=== PATIENT | female | born 1955 | race Caucasian/White ===

== ENCOUNTER 2018-11-22 09:53 | Inpatient (IN) ==
--- NOTE | 2018-11-22 10:03 | PROVIDER DOCUMENTATION ---
HPI-Musculoskeletal Pain/Inj - GENERAL Chief Complaint: Hip Injury Stated Complaint: FALL / LEFT HIP PAIN Time Seen by Provider: 11/22/18 09:56 Source: patient - HX OF PRESENT ILLNESS-MUSKULOSKELTAL Nature of Presenting Problem: 63yof presents to ED s/p slip and fall from standing to left hip, with impact to lateral surface. She denies head impact/back pain/paresthesias. She has not ambulated since fall and arrived via EMS. 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 Quality of Pain: reports: aching Severity in ED: moderate Onset/Duration: abrupt, just prior to arrival Timing: still present Modifying Factors: improves with: movement Any recent injury?: Yes Locality of Occurance: Home Similar Symptoms Previously?: No Recently seen or treated by another doctor?: No Review of Systems - Adult - REVIEW OF SYSTEMS - ADULT Constitutional: reports: no symptoms reported Eyes: reports: no symptoms reported Ears, Nose, Mouth & Throat: reports: no symptoms reported Cardiovascular: reports: no symptoms reported Respiratory: reports: no symptoms reported Gastrointestinal: reports: no symptoms reported Genitourinary: reports: no symptoms reported Musculoskeletal: reports: see HPI, joint pain (left hip) Integumentary: reports: no symptoms reported Neurological: reports: no symptoms reported Psychiatric: reports: no symptoms reported Endocrine: reports: no symptoms reported Hematologic/Lymphatic: reports: no symptoms reported Allergic/Immunologic: reports: no symptoms reported All Other Systems: Reviewed and Negative Past History - Adult - PAST MEDICAL HISTORY-ADULT Review of Records: reports: Old Records Reviewed, Nursing Assessment Review, Medications Reviewed, Social history reviewed & non-contributory. - SOCIAL HISTORY Smoking: non-smoker Living Situation: family Physical Exam-Injury Related - Physical Exam-Injury Related Initial Vital Signs Reviewed: Yes General Appearance: appears well, alert, no apparent distress Eyes: PERRL/EOMI, pink conjunctivae Head, Ears, Nose, Mouth & Throat: normocephalic/atraumatic, moist mucous membranes, normal ENT inspection, TMs normal, pharynx normal Neck: non-tender, full range of motion, supple, normal inspection Respiratory: chest non-tender, lungs clear, normal breath sounds Cardiovascular: normal peripheral pulses, regular rate, rhythm Abdominal Exam: normal bowel sounds, non tender, soft, no organomegaly Lymphatic: no adenopathy Back Exam: normal inspection, no CVA tenderness, no vertebral tenderness Extremity: normal inspection, tenderness (moderate left lateral hip tenderness with palpation; Dec AROM due to pain with movement) Integumentary: normal color, warm/dry Neurologic: compliance spec II-XII nml as tested, grossly normal, no motor/sensory deficits Psych/Mental Status: normal mood/affect, normal thought content, normal thought process, oriented x 3 Progress - PLAN OF CARE/RESULTS Progress/Plan/Lab Results: Vital Signs - 8 hr 11/22/18 09:55 Temperature 98.5 F Pulse Rate 96 H Respiratory Rate 19 Blood Pressure 130/94 O2 Sat by Pulse Oximetry 97 Laboratory Results - last 24 hr 11/22/18 11/22/18 11/22/18 11:04 11:15 11:15 WBC 9.56 RBC 4.76 Hgb 13.2 Hct 40.1 MCV 84.2 MCH 27.7 MCHC 32.9 L RDW Std Deviation 15.3 H Plt Count 291 MPV 8.9 Immature Gran % (Auto) 0.4 Neut % (Auto) 80.2 H Lymph % (Auto) 10.3 L [place] % (Auto) 7.2 Eos % (Auto) 1.6 Baso % (Auto) 0.3 Immature Gran # (Auto) 0.04 Neut # (Auto) 7.67 H Lymph # (Auto) 0.98 L [place] # (Auto) 0.69 H Eos # (Auto) 0.15 Baso # (Auto) 0.03 PT INR PTT (Actin FS) Sodium 142 Potassium 4.0 Chloride 108 H Carbon Dioxide 23 L Anion Gap 11 BUN 12 Creatinine 0.8 Estimated GFR/1.73 m2 > 60 BUN/Creatinine Ratio 15 Glucose 104 Calculated Osmolality 283 Calcium 8.9 Total Bilirubin 0.25 AST 22 ALT 17 Alkaline Phosphatase 71 Total Protein 7.1 Albumin 3.8 Globulin 3.3 Albumin/Globulin Ratio 1.2 Urine Source CATH Urine Color YELLOW Urine Turbidity CLEAR Urine pH 7.0 Ur Specific [place] 1.010 Urine Protein NEGATIVE Ur Glucose (Stick) NEGATIVE Ur Ketones (Stick) NEGATIVE Urine Blood NEGATIVE Urine Nitrite NEGATIVE Urine Bilirubin NEGATIVE Urobilinogen Dipstick NORMAL Urine Leukocytes NEGATIVE Urine WBC (Auto) <10 Urine RBC (Auto) <10 U Epithel Cells (Auto) <10 Urine Bacteria (Auto) NEGATIVE 11/22/18 11:15 WBC RBC Hgb Hct MCV MCH MCHC RDW Std Deviation Plt Count MPV Immature Gran % (Auto) Neut % (Auto) Lymph % (Auto) [place] % (Auto) Eos % (Auto) Baso % (Auto) Immature Gran # (Auto) Neut # (Auto) Lymph # (Auto) [place] # (Auto) Eos # (Auto) Baso # (Auto) PT 12.7 INR 0.95 PTT (Actin FS) 26.2 Sodium Potassium Chloride Carbon Dioxide Anion Gap BUN Creatinine Estimated GFR/1.73 m2 BUN/Creatinine Ratio Glucose Calculated Osmolality Calcium Total Bilirubin AST ALT Alkaline Phosphatase Total Protein Albumin Globulin Albumin/Globulin Ratio Urine Source Urine Color Urine Turbidity Urine pH Ur Specific [place] Urine Protein Ur Glucose (Stick) Ur Ketones (Stick) Urine Blood Urine Nitrite Urine Bilirubin Urobilinogen Dipstick Urine Leukocytes Urine WBC (Auto) Urine RBC (Auto) U Epithel Cells (Auto) Urine Bacteria (Auto) Orders Category Date Time Status [place] Insertion ORDERED Care 11/22/18 10:32 Active Nursing- Obtain EKG ONCE Care 11/22/18 10:32 Active Saline Loc NOW Care 11/22/18 10:32 Active NPO Diet 11/22/18 11:48 Active CHEST-1 VIEW [RAD] Stat Exams 11/22/18 10:18 Completed KNEE 3 VIEWS LEFT [RAD] Stat Exams 11/22/18 10:09 Completed XRAY HIP UNILATERAL LT [RAD] Stat Exams 11/22/18 10:00 Completed CBC WITH DIFF [HEME] Stat Lab 11/22/18 11:15 Completed COMPREHENSIVE METABOLIC PANEL [CHEM] Stat Lab 11/22/18 11:15 Completed PROTIME WITH INR [COAG] Stat Lab 11/22/18 11:15 Completed PTT [COAG] Stat Lab 11/22/18 11:15 Completed URINALYSIS W/POSS RFLX CULT [URINALYSIS] Stat Lab 11/22/18 11:04 Completed Morphine Med 11/22/18 10:32 Discontinued 4 mg IV NOW ONE Morphine Med 11/22/18 11:16 Discontinued 4 mg IV NOW ONE Ondansetron [Zofran] Med 11/22/18 10:32 Discontinued 4 mg IV NOW ONE EKG [EKG] Stat Ther 11/22/18 10:32 Draft Result Diagrams: 11/22/18 11:15 11/22/18 11:15 - REASSESSMENT Reassessment #1 Time Reassessed: 10:37 (Reviewed xrays, discussed results with pt and Dr. Ornelas. Paging Orthopedist electrical subcontractor for admit.) Reassessment #2 Time Reassessed: 11:49 (Discussed pt with Dr. Grimm's PA, who recommends admit to Hospitalist.) Reassessment #3 Time Reassessed: 11:52 (Discussed pt with Hospitalist service KSENIA Magallanes, who accepted admit to Dr. Dc and is aware Dr. Grimm has been consulted.) Reassessment #4 Time Reassessed: 11:57 (Spoke with Dr. Grimm, he agrees with admit.) Departure - Departure Date of Disposition Decision: 11/22/18 Time of Disposition Decision: 10:33 DIAGNOSIS: Hip fracture, left Qualifiers: Encounter type: initial encounter Fracture type: closed Qualified Code(s): S72.002A - Fracture of unspecified part of neck of left femur, initial encounter for closed fracture Disposition: ADMITTED INPATIENT 09 Certified Medical Emergency: Emergent Condition: Stable Referrals and Follow-Ups: None,PCP [Primary Care Provider] - - Critical Care Note This patient required my direct & personal management of CC.: No Attestation - Physician/ BUDDY Attestation Patient care was provided by Advanced Practice Provider:: Yes Advanced Practice Provider:: Aspen Tapia Advanced Practice Provider documentation review:: The Mid-level provider documentation, treatment plan and medical decision making was reviewed by the physician who agrees with all treatment and medical decision making by the [facility]. The physician spent face to face time with patient:: No Advanced Practice Provider documentation review:: Supervising physician onsite and consulted in the evaluation and care of this patient. The physician did not have a face to face encounter with the patient.
[2018-11-22] MEDS ORDERED: MORPHINE IV ONE ×2 (10:32→11:16)
[2018-11-22] MEDS ORDERED: ZOFRAN IV ONE (10:32)
--- NOTE | 2018-11-22 10:32 | Diag Imaging Result Doc PS360 ---
EXAM: CHEST-1 VIEW HISTORY: hip fracture TECHNIQUE: Chest single view COMPARISON: None. FINDINGS: The lungs are well expanded. The heart is not enlarged. The vessels are not distended. There are no infiltrates. No effusion identified. IMPRESSION: Negative exam. Electronically signed by Param Ramirez 11/22/2018 10:30 AM
--- NOTE | 2018-11-22 10:36 | Diag Imaging Result Doc PS360 ---
EXAM: XRAY HIP UNILATERAL LT HISTORY: left hip pain s/p fall TECHNIQUE: Left hip two views COMPARISON: None. FINDINGS: There is a fracture to the upper left femur. This appears to extend across the lesser trochanter to the proximal shaft. The femoral head remains in the acetabulum. IMPRESSION: Proximal femoral fracture Electronically signed by Param Ramirez 11/22/2018 10:34 AM
--- NOTE | 2018-11-22 10:53 | Diag Imaging Result Doc PS360 ---
EXAM: KNEE 3 VIEWS LEFT HISTORY: left knee pain TECHNIQUE: Left knee, three views COMPARISON: None. FINDINGS: No fracture. No dislocation. No joint space narrowing. IMPRESSION: Negative exam Electronically signed by Param Ramirez 11/22/2018 10:51 AM
[2018-11-22 11:15] LABS: URINE SOURCE CATH
[2018-11-22 11:16] LABS: COLOR YELLOW; TURBIDITY URINE CLEAR (CLEAR)
[2018-11-22 11:17] LABS: BILIRUBIN URINE NEGATIVE (NEGATIVE); BLOOD URINE NEGATIVE (NEGATIVE); GLUCOSE URINE NEGATIVE (NEGATIVE); KETONE URINE NEGATIVE (NEGATIVE); LEUKOCYTES URINE NEGATIVE (NEGATIVE); NITRITE URINE NEGATIVE (NEGATIVE); PROTEIN URINE NEGATIVE (NEGATIVE); UROBILINOGEN URINE NORMAL (NORMAL)
[2018-11-22 11:18] LABS: UR EPITHELIAL CELLS <10 /HPF (<10); URINE BACTERIA NEGATIVE /HPF; URINE RBC <10 /HPF (<10); URINE WBC <10 /HPF (<10)
[2018-11-22 11:25] LABS: BASO# 0.03 X1000 (0.0-0.2); BASO% 0.3 % (0.0-0.8); EOS# 0.15 X1000 (0.0-0.7); EOS% 1.6 % (0.0-10.0); HEMATOCRIT 40.1 % (37.0-47.0); HEMOGLOBIN 13.2 g/dL (12.0-16.0); IMM GRAN# 0.04 X1000 (0.0-0.04); IMM GRAN% 0.4 % (0.0-0.5); LYMPH# 0.98 X1000 (1.2-3.4); LYMPH% 10.3 % (20.5-51.1); MCH 27.7 PG (27-31); MCHC 32.9 g/dL (33-37); MCV 84.2 FL (81-99); MONO# 0.69 X1000 (0.11-0.59); MONO% 7.2 % (1.7-9.3); MPV 8.9 FL (7.4-10.4); NEUT# 7.67 X1000 (1.4-6.5); NEUT% 80.2 % (42.2-75.2); PLT 291 X1000 (130-400); RBC 4.76 XMIL (4.2-5.4); RDW 15.3 % (11.5-14.5); WBC 9.56 X1000 (4.8-10.8)
--- NOTE | 2018-11-22 11:31 | EKG Report ---
Test Performed on : 11/22/2018 10:54:06 AM Test Reason : hip fracture, preop Blood Pressure : / mmHG Vent. Rate : 084 BPM Atrial Rate : 084 BPM P-R Int : 176 ms QRS Dur : 076 ms QT Int : 382 ms P-R-T Axes : 058 020 049 degrees QTc Int : 451 ms Normal sinus rhythm. Normal ECG No previous ECGs available Unconfirmed Result
[2018-11-22 11:33] LABS: INR 0.95; PROTIME 12.7 Seconds (11.0-16.0)
[2018-11-22 11:34] LABS: PTT 26.2 Seconds (22.3-41.8)
--- NOTE | 2018-11-22 11:40 | ED EKG INTERP ---
This chart was entered by Emilia Gipson Scribe, acting as scribe for Neil Ornelas MD. EKG Interpretation - EKG Time of EKG reading by physician:: 10:54 EKG Read and Signed by:: Neil Ornelas EKG Interpretation (*Must complete 3 of following elements*): Normal Rate: 84 Rhythm: normal sinus rhythm [place]: normal QRS: normal [place] Interval: normal ST Wave: normal Comments: normal ECG Attestation - Physician/ BUDDY Attestation Patient care was provided by Advanced Practice Provider:: Yes Advanced Practice Provider:: Aspen Tapia Advanced Practice Provider documentation review:: The Mid-level provider documentation, treatment plan and medical decision making was reviewed by the physician who agrees with all treatment and medical decision making by the MLP. The physician spent face to face time with patient:: No Advanced Practice Provider documentation review:: Supervising physician onsite and consulted in the evaluation and care of this patient. The physician did not have a face to face encounter with the patient. This chart was documented by the indicated scribe, (Emilia Gipson Scribe) and accu rately reflects the services I performed and decisions made by Johnson carl Alex T., MD, as attested by the provider's signature.
[2018-11-22 11:51] LABS: AGAP 11; ALB/GLOB RATIO 1.2; ALBUMIN 3.8 g/dL (3.5-5.0); ALKALINE PHOSPHATASE 71 U/L (32-104); BUN 12 mg/dL (8-22); CALCIUM 8.9 mg/dL (8.8-10.2); CHLORIDE 108 mmol/L (98-107); COSMO 283; CREATININE 0.8 mg/dL (0.5-0.9); ESTIMATED GFR > 60; GLUCOSE 104 mg/dL (70-104); GOT 22 U/L (10-30); GPT 17 U/L (10-36); SODIUM 142 mmol/L (136-145); TCO2 23 mmol/L (25-35); TOTAL BILIRUBIN 0.25 mg/dL (0.20-1.00); TOTAL PROTEIN 7.1 g/dL (6.3-8.3)
[2018-11-22] MEDS ORDERED: DILAUDID IV ONE (12:20)
[2018-11-22] MEDS ORDERED: NS 1,000 ML IV SCH (13:40)
[2018-11-22] MEDS ORDERED: MORPHINE IV PRN (13:40)
[2018-11-22] MEDS ORDERED: ZOFRAN IV PRN ×2 (13:40→16:45)
[2018-11-22] MEDS ORDERED: KEFZOL 1 GM/D5W 1 GM/50 ML IVPB IV ONE (13:40)
[2018-11-22] MEDS ORDERED: TYLENOL PO PRN (13:40)
[2018-11-22] MEDS ORDERED: DIPRIVAN 1% ONE (14:04)
[2018-11-22] MEDS ORDERED: XYLOCAINE-MPF 2% ONE (14:04)
--- NOTE | 2018-11-22 14:12 | EKG Report ---
Test Performed on : 11/22/2018 1:55:28 PM Test Reason : preop Blood Pressure : / mmHG Vent. Rate : 088 BPM Atrial Rate : 088 BPM P-R Int : 182 ms QRS Dur : 076 ms QT Int : 374 ms P-R-T Axes : 066 043 050 degrees QTc Int : 452 ms Normal sinus rhythm. Normal ECG When compared with ECG of 22-NOV-2018 10:54, (Unconfirmed) No significant change was found Confirmed by Adriane GRAY, Robb Perez ([id number]) on 11/22/2018 10:36:43 PM
[2018-11-22] MEDS ORDERED: KEFZOL 2 GM/D5W 2 GM/50 ML IVPB ONE (14:17)
--- NOTE | 2018-11-22 14:24 | ORTHOPAEDICS CONSULTATION ---
DATE: 11/22/2018 HISTORY: Ms. London is a 63-year-old female with a past medical history of chronic lower back pain for which she is on Neurontin. She was in her home when she had a slip and fell from a standing height. She had an impact to the left side. She had immediate pain in the left hip. She was unable to ambulate or weight bear on this left side after the fall. She denies loss of consciousness, dizziness, lightheadedness, or syncope. She denies any injury to the head. She denies injury to any other extremity. She was taken by ambulance to [facility] Emergency Room. A hip film taken in the emergency room showed a left intertrochanteric fracture. Orthopedics has been consulted for management of the fracture. PAST MEDICAL HISTORY: Chronic low back pain. PAST SURGICAL HISTORY: Not known. CURRENT MEDICATIONS: Neurontin. ALLERGIES: No known drug allergies. FAMILY HISTORY: Noncontributory. SOCIAL HISTORY: The patient is a past smoker but denies smoking in the last 3 years. She rarely uses alcohol. She denies illicit drug use. She lives with her son. REVIEW OF SYSTEMS: A 10 point review of systems was completed and negative except for what was mentioned above in the HPI. PHYSICAL EXAMINATION: Vital Signs: Temperature is 98.6 degrees, pulse 78, respirations 14, blood pressure 130/94, she is 95% on room air. General: This is a 63-year-old, obese female in no acute distress. Neurological: She is alert and oriented x3 with no focal deficits. HEENT: Head is atraumatic, normocephalic. Pupils equal, round, reactive to light. Cardiovascular: Regular rate and rhythm. Breathing is even and nonlabored with equal chest expansion. Abdomen: Obese but appears nondistended. Extremities: The left lower extremity is short and externally rotated. She does have decreased sensation to the foot. She has tenderness to palpation over the hip and pain with range of motion. She is able to dorsi and plantar flex the ankle. She does have a lot of discoloration from the knee down that is bilateral. She has a little bit of edema bilaterally as well. LABORATORY: White count is 9.56, hemoglobin and hematocrit 13.2 and 40.1, platelet count is 291,000. INR is 0.95. BUN and creatinine are 12 and 0.8. IMAGING: A two-view of the left hip reviewed and interpreted by Dr. Segovia shows a left intertrochanteric fracture. ASSESSMENT: Left intertrochanteric fracture. PLAN: Dr. Segovia has discussed with the patient and the family about surgical fixation. We will plan for a trochanteric femoral nailing today. She denies being on any blood thinners. She does not have a lot of past medical history but I do not think she goes to the doctor very much. She does have a lot of discoloration of the lower extremities. It does look like she has some peripheral vascular disease for sure but otherwise, there are no obvious contraindications to pursuing surgery today. She is in a pretty good amount of pain. Her son is at the bedside. Dr. Segovia discussed risks and benefits with the patient. Risks include, but are not limited to, damage to nerves, arteries, and veins, malunion, nonunion, hardware related issues, DVT, infection, poor wound healing, risk of continued pain, and risk of general anesthesia. The patient and family understand and wished to proceed. We are going to do this today. We will plan for her to be full weightbearing as tolerated on that left lower extremity postoperatively. We will plan for a 21 day rehab stay. Dictated by KSENIA Jose for Jeff Segovia MD cc: KSENIA Jose MD
[2018-11-22] MEDS ORDERED: MORPHINE ONE (14:35)
[2018-11-22] MEDS ORDERED: DECADRON ONE (14:56)
[2018-11-22] MEDS ORDERED: ZOFRAN ONE (14:56)
[2018-11-22] MEDS ORDERED: ROBINUL ONE (15:39)
[2018-11-22] MEDS ORDERED: PHENERGAN ONE (16:06)
[2018-11-22] MEDS: DILAUDID ONE ×4 (16:08→16:30)
[2018-11-22] MEDS ORDERED: HALDOL IV PRN (16:45)
[2018-11-22] MEDS ORDERED: MILK OF MAGNESIA PO PRN (16:45)
[2018-11-22] MEDS ORDERED: NS 1,000 ML ONE (17:00)
[2018-11-22] MEDS: NS 1,000 ML IV SCH (17:47)
[2018-11-22] MEDS: TYLENOL PO SCH ×2 (17:47→20:46)
--- NOTE | 2018-11-22 18:47 | HISTORY AND PHYSICAL ---
PRIMARY CARE PROVIDER: Dr. Brewer in [facility]. CHIEF COMPLAINT: Fall from standing. HISTORY OF PRESENT ILLNESS: Ms. London is a 63-year-old female who slipped and fell from standing on her left hip. She did not hit her head. Other past medical history: Hepatitis C, for which she states she took the cure for, bilateral lower extremity nerve pain for which she takes gabapentin; however, she does look like she has some peripheral vascular disease on her lower extremities. She is currently being prepped to take to the OR to fix her left femoral fracture that is evident on x-ray. There was no reported presyncopal or syncopal episode, no dizziness, no nausea, vomiting, or diarrhea, no chest pain or heart palpitations. PAST MEDICAL HISTORY: 1. Bilateral lower extremity nerve pain. 2. Hepatitis C a few years ago, which she reports she took the medication and is now cured. SOCIAL HISTORY: She is from [facility]. She is here visiting family. No alcohol, tobacco, or illicit drug use. FAMILY HISTORY: Reviewed and noncontributory. ALLERGIES: No known drug allergies. HOME MEDICATIONS: Gabapentin 200 mg p.o. t.i.d. PHYSICAL EXAMINATION: VITAL SIGNS: Temperature is 98.6 degrees, heart rate 78, respirations 14, blood pressure 130/94, O2 is 95% on room air. GENERAL: Ms. London is a 63-year-old female who is about to be wheeled up to surgery, who is lying on the stretcher in no acute distress, but she is in pain to that left hip area, moaning. HEENT: Atraumatic, normocephalic. PERRL. NECK: Supple. Trachea midline. CARDIOVASCULAR: S1, S2 appreciated. No murmurs, gallops, rubs noted. RESPIRATORY: Lung sounds clear bilaterally. GI: Soft, nontender, nondistended. Positive bowel sounds 4 quadrants. EXTREMITIES: Lower extremity does appear to have some peripheral vascular disease, discoloration. NEUROLOGIC: No focal deficits noted. DIAGNOSTIC DATA: Hip x-ray: Left femoral fracture. Knee x-ray: Negative exam. Chest x-ray: Negative exam. EKG: Normal sinus rhythm. LABORATORY DATA: White count 9, hemoglobin and hematocrit 13 and 40, platelet count is 291,000. Sodium 142, potassium 4.0, BUN 12, creatinine 0.8, blood glucose is 104. Urinalysis is negative for nitrates, negative for bacteria. ASSESSMENT AND PLAN: 1. Left femoral fracture. She is about to undergo surgery with Dr. Grimm. We will continue with pain regimen. Consult Ornithology Teacher for rehabilitation placement. 2. Bilateral lower extremity nerve pain. We will continue with gabapentin when appropriate. 3. History of hepatitis C a few years ago. Patient stated that she took medicine for that and she is now cured. 4. Further recommendations to follow physician evaluation, laboratory and diagnostic data. Dictated by KSENIA Smith for Calixto Vaughan MD cc: MD Dr. Alfa Harden
[2018-11-22] MEDS: OXY IR PO PRN (20:46)
[2018-11-22] MEDS: PERIDEX MT SCH (20:46)
[2018-11-22] MEDS: COLACE PO SCH (20:47)
--- NOTE | 2018-11-22 22:24 | OPERATIVE NOTE ---
PROCEDURE DATE: 11/22/2018 PREOPERATIVE DIAGNOSIS: Left displaced intertrochanteric femur fracture. POSTOPERATIVE DIAGNOSIS: Left displaced intertrochanteric femur fracture. PROCEDURE: Intramedullary nailing of the left femur with a Synthes TFN nail. SURGEON: Jeff Segovia MD MANGLE CATCHER: KSENIA Jose who was necessary for proper retraction and assistance during the case. SECOND TOBACCO SCRAP SIFTER: KSENIA Greenberg ANESTHESIA: General. IV FLUIDS: 650 mL lactated Ringer's. ESTIMATED BLOOD LOSS: 100 mL. COMPLICATIONS: None. INDICATION: The patient is a pleasant 63-year-old female who is status post fall sustaining a left displaced intertrochanteric femur fracture. The patient presented to the emergency room, and x-rays revealed the fracture. Orthopedic consultation was requested. Recommendation to pursue intramedullary nailing was offered. Risks and benefits of surgery were explained, including the risks of anesthesia, , bleeding, infection, failure to relieve pain, postoperative stiffness, nerve injury, blood clots, and other imponderables. All questions were answered. The patient and family wished to proceed with surgery. DETAILS OF OPERATION: The patient was taken to the operating room and placed supine on the operating table. Once adequate anesthesia was obtained, she was placed supine on the fracture table. Provisional reduction was obtained, had good alignment with both AP and lateral projections. After this had been confirmed, left lower extremity was subsequently prepped and draped in usual sterile fashion. Approximately 3 fingerbreadths proximal to greater trochanter a lateral incision was made. The incision was carried down through the gluteus leslie. Blunt dissection was performed to the greater trochanter. A guide pin was then placed along the tip of the greater trochanter into the intramedullary canal. I had good positioning confirmed with C-arm visualization. A starting reamer was then passed. After this had been performed, the guide pin was removed. A ball-tipped guide pin was then placed in position. The length of the nail was determined to be 420 mm length nail. A 12 mm reamer was then passed. After this had been performed, an 11 x 420 mm Synthes TFN nail was then advanced over the ball-tip guide pin. The ball-tipped guide pin was then removed. Using the outrigger guide through a lateral incision along the proximal femur, guide pin was placed along the lateral cortex across the fracture site in the femoral neck and head. Had good position in both AP and lateral projections. Length of the nail was determined to be 100 mm. The lateral cortex was reamed followed by cannulated drill. After this had been performed, the 100 mm helical blade was then advanced and had good purchase. Proximal set screw was tightened in standard fashion. After this had been performed, attention then turned to the distal femur where using perfect white earth technique through a stab incision the one locking screw was placed distally. Good position was confirmed with C-arm visualization in both AP and lateral projections. Final C-arm visualization revealed good alignment of the fracture and good position of the hardware. The wounds were copiously irrigated. #1 Vicryl was used in the deep fascia proximal wound followed by 2-0 Vicryl in the two proximal wounds and skin john in all the wounds. Adaptic, sterile 4 x 4's, ABD pad, tape were applied to the left lower extremity. Patient tolerated the procedure well and was transferred to the recovery room in stable condition. cc: Jeff Segovia MD
[2018-11-23] MEDS: KEFZOL 2 GM/D5W 2 GM/50 ML IVPB IV SCH ×2 (00:21→08:42)
[2018-11-23] MEDS: OXY IR PO PRN ×6 (00:32→22:06)
[2018-11-23] MEDS: MORPHINE IV PRN ×2 (01:22→05:28)
[2018-11-23] MEDS: NS 1,000 ML IV SCH ×2 (04:52→17:48)
[2018-11-23 06:48] LABS: BASO# 0.01 X1000 (0.0-0.2); BASO% 0.1 % (0.0-0.8); HEMATOCRIT 36.5 % (37.0-47.0); HEMOGLOBIN 11.8 g/dL (12.0-16.0); IMM GRAN# 0.03 X1000 (0.0-0.04); IMM GRAN% 0.3 % (0.0-0.5); LYMPH# 0.92 X1000 (1.2-3.4); LYMPH% 8.1 % (20.5-51.1); MCH 27.8 PG (27-31); MCHC 32.3 g/dL (33-37); MCV 85.9 FL (81-99); MONO# 0.94 X1000 (0.11-0.59); MONO% 8.3 % (1.7-9.3); MPV 9.4 FL (7.4-10.4); NEUT# 9.48 X1000 (1.4-6.5); NEUT% 83.2 % (42.2-75.2); PLT 269 X1000 (130-400); RBC 4.25 XMIL (4.2-5.4); RDW 15.3 % (11.5-14.5); WBC 11.38 X1000 (4.8-10.8)
--- NOTE | 2018-11-23 07:02 | Diag Imaging Result Doc PS360 ---
EXAM: CHEST-PORTABLE 11/23/2018 HISTORY: post op TECHNIQUE: AP portable at 0604 COMMENT: There is no evidence of acute cardiac or pulmonary disease. Compared to 11/22/2018 there has been no significant change in the appearance of the chest. IMPRESSION: No evidence of acute disease. Electronically signed by Chapincito Yost 11/23/2018 7:00 AM
[2018-11-23 07:08] LABS: CALCIUM 7.9 mg/dL (8.8-10.2); POTASSIUM 4.2 mmol/L (3.5-5.1)
[2018-11-23] MEDS: XARELTO PO SCH (07:15)
[2018-11-23] MEDS: TYLENOL PO SCH ×3 (07:15→22:07)
[2018-11-23] MEDS: PERIDEX MT SCH ×2 (08:42→22:06)
[2018-11-23] MEDS: FERROUS SULFATE PO SCH (08:42)
--- NOTE | 2018-11-23 11:29 | ORTHOPAEDICS PROGRESS NOTE ---
DATE: 11/23/2018 SUBJECTIVE: The patient is a pleasant, 63-year-old female, who is 1 day status post intramedullary nailing of the left femur. She is currently resting comfortably. OBJECTIVE: On physical examination, the patient's left lower extremity dressing is intact. Her calf is soft. She has active dorsiflexion and plantar flexion. She is neurovascularly distally. LABS: Her labs are pending. IMPRESSION: Postoperative day #1 status post intramedullary nailing of the left femur. PLAN: At this point, the patient will begin mobilization of physical therapy weight bear as tolerated left lower extremity. We will change her dressing tomorrow. We will consult Welfare Officer for discharge planning. cc: Jeff Segovia MD
[2018-11-23] MEDS ORDERED: MORPHINE IV PRN (12:54)
--- NOTE | 2018-11-23 14:43 | PROGRESS NOTE ---
DATE: 11/23/2018 SUBJECTIVE: This morning, Ms. London was sitting up in a chair. She refers to be doing well. The mother was also at the bedside with her at the time of the encounter. Ms. London denies any new complaints, except for the pain in the left thigh at the surgery site. OBJECTIVE: Vital Signs: Blood pressure is 129/65, pulse of 80, respirations 16, temperature 97.9 degrees, the patient was saturating 95% on room air. She has a BMI of 37.6. General: Ms. London is a 63-year-old female. She was sitting up in a chair. No distress. HEENT: Mucosa is pink and moist. Anicteric. Acyanotic. Chest: Good air entry bilaterally. There were no crepitations. No rhonchi. Cardiovascular: Regular rate and rhythm. There were no murmurs, no rubs, no gallops. GI: Abdomen was soft, distended, but nontender. Bowel sounds present. Extremities: No pedal edema. 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 There was no focal neurological deficit. Musculoskeletal: The left lower extremity proximally had a dressing at the lateral aspect of the thigh, both the proximal and distal part. It looked clean without any blood staining. LABORATORY DATA: Hemoglobin was 11.8. Chemistry is reviewed. Creatinine 1.0. Rest of chemistry is unremarkable. MEDICATIONS: The patient's current medications have all been reviewed. No changes. The patient has been started on Xarelto for DVT prophylaxis. ASSESSMENT: 1. Status post mechanical fall, resulting into a left proximal femoral fracture. The patient is status post intramedullary nailing of the left femur. Today is day 1 postoperatively. The patient is doing well. She has been sitting up in a chair. There is a plan to hopefully get her to rehab ([facility]) tomorrow. 2. History of hepatitis C. 3. Remote history of tobacco use. 4. Obesity with body mass index of 37.6. Weight management has been advised. 5. Xarelto for deep venous thrombosis prophylaxis after orthopedic intervention noted. cc: Calixto Vaughan MD
[2018-11-23] MEDS: COLACE PO SCH (22:06)
[2018-11-24] MEDS: OXY IR PO PRN ×3 (03:37→13:42)
[2018-11-24] MEDS: NS 1,000 ML IV SCH ×2 (04:42→04:47)
[2018-11-24] MEDS: TYLENOL PO SCH (04:42)
[2018-11-24] MEDS: XARELTO PO SCH (04:42)
[2018-11-24 06:53] LABS: HEMATOCRIT 32.1 % (37.0-47.0); HEMOGLOBIN 10.1 g/dL (12.0-16.0)
--- NOTE | 2018-11-24 07:03 | ORTHOPAEDICS PROGRESS NOTE ---
DATE: 11/24/2018 SUBJECTIVE: The patient is a pleasant 63-year-old female who is 2 days status post intramedullary nailing of the left femur. She is currently resting comfortably this morning. PHYSICAL EXAMINATION: Her left lower extremity dressing is intact. Calf is soft. She has active dorsiflexion and plantar flexion. She is neurovascularly intact distally. LABORATORY: Hemoglobin from yesterday was 1.8 and hematocrit 36.5. Labs are pending this morning. IMPRESSION: Postoperative day #2 status post left intramedullary nailing of the left femur. PLAN: At this point, we will change her dressing this morning. [facility] has been consulted for inpatient rehabilitation. She is stable from an orthopedic standpoint. cc: Jeff Segovia MD
[2018-11-24] MEDS: PERIDEX MT SCH (08:19)
[2018-11-24] MEDS: FERROUS SULFATE PO SCH (08:19)
--- NOTE | 2018-11-24 11:22 | DISCHARGE SUMMARY ---
ADMISSION DATE: 11/22/2018 DISCHARGE DATE: 11/24/2018 DISPOSITION: [facility]. CONSULTATION DURING THIS ADMISSION: Orthopedics was consulted, the patient was seen by Dr. Segovia. INVASIVE PROCEDURES DONE DURING THIS ADMISSION: An intramedullary nailing of the left femur with a Synthes TFN nail was done by Dr. Segovia on 11/22/2018. ADMISSION DIAGNOSES: 1. Left femoral fracture. 2. Bilateral lower extremity nerve pain. 3. History of hepatitis C. DISCHARGE DIAGNOSES: 1. Status post mechanical fall resulting in a left displaced intertrochanteric femur fracture. The patient was status post intramedullary nailing of the left femur fracture. 2. History of hepatitis C. 3. Obesity with BMI of 37.6. 4. History of tobacco use, not anymore. 5. Xarelto for DVT prophylaxis after orthopedic surgery. PRESENTING COMPLAINT: Fall from standing. HISTORY OF PRESENTING COMPLAINT: Ms. London is a 63-year-old female, who refers to have tripped and fell sustaining an injury to the left thigh. She could not get up. She called for help. She was subsequently brought to the emergency room where she was found to have a left intertrochanteric displaced fracture. Orthopedics was consulted. HOSPITAL COURSE: Ms. London was evaluated by Orthopedics on the day of presentation and surgery was done subsequently. She did well after surgery. She was evaluated multiple times by physical therapy including yesterday. This morning. Ms. London refers to be doing well. She feels slightly tired after going to the restroom, but otherwise she is clinically stable. Her current vitals: Blood pressure is 108/66, pulse of 67, respiration is 18, temperature 97.9 degrees. Ms. London is clinically stable for discharge today. DISCHARGE MEDICATIONS: Include 1. Gabapentin 200 three times per day. 2. Iron sulfate 325 mg p.o. daily. 3. Magnesium sulfate 30 mL p.o. daily. 4. Tylenol 650 p.o. q.6h p.r.n. 5. Xarelto 10 mg p.o. daily for 35 days. 6. Oxycodone IR 10 mg p.o. q.3 p.r.n., 20 pills have been prescribed. Time spent for discharge is 36 minutes. cc: MD Jeff Hardenscott, MD
[2018-11-24 13:18] VITALS: BP 134/74
== END 2018-11-24 15:06 | DRG 482 ==
LOC: SUPCPDRO → ED 09:53 → SUATTDRO 12:58 → 4N 12:58
PROVIDERS: ATTEND Internal Medicine